=== PATIENT | female | born 1950 | race African-American/Black ===

== ENCOUNTER 2018-01-30 09:02 | Inpatient (IN) ==
[2018-01-30] MEDS ORDERED: ASPIRIN 325 MG TABLET PO STA (09:19)
[2018-01-30] MEDS ORDERED: ORPHENADRINE 60 MG/2 ML VIAL IV STA (09:19)
[2018-01-30] MEDS ORDERED: ONDANSETRON 4 MG/2 ML VIAL IV STA (09:19)
[2018-01-30] MEDS ORDERED: KETOROLAC 30 MG/1 ML VIAL IV STA (09:19)
[2018-01-30 10:12] LABS: Basophils % 0.1 % (0.0-0.8); Eosinophils % 0.1 % (0.00-10.9); Hematocrit 31.9 VOL% (35.7-47.0); Hemoglobin 10.3 GM/DL (12.0-16.0); Immature Granulocytes % 0.6 %; Lymphocytes % 12.6 % (21.3-54.2); Mean Corpuscular HGB Conc 32.3 GM/DL (32-36); Mean Corpuscular Hemoglobin 24 PG (27-34); Mean Corpuscular Volume 74.2 FL (87-102); Mean Platelet Volume 10.5 FL (9.6-12.0); Monocytes % 6.1 % (1.7-12.7); Neutrophils # 12.8 10*3/uL (1.4-7.4); Neutrophils % 80.5 % (38.7-73.9); Platelet Count 286 T/CUMM (130-400); Red Cell Distribution Width 16.7 % (9.3-17.3); White Blood Count 15.9 T/CUMM (4-12)
[2018-01-30] MEDS ORDERED: LEVOFLOXACIN INJ 750 MG in PREMIX 1 EACH IV STA (10:15)
[2018-01-30 10:27] LABS: Barbiturates Screen,Urine Negative (Negative); Benzodiazepines Screen,Urine Negative (Negative); Cannabinoid Screen,Urine Negative (Negative); Opiate Screen,Urine Negative (Negative); Phencyclidine Screen,Urine Negative (Negative)
[2018-01-30 10:31] LABS: Alanine Aminotransferase 35 U/L (13-56); Albumin 2.2 G/DL (3.4-5.0); Alkaline Phosphatase 140 U/L (45-117); Aspartate Amino Transferase 39 U/L (0-37); Blood Urea Nitrogen 14 MG/DL (7-18); Calcium 9.1 MG/DL (8.5-10.1); Glucose 115 MG/DL (74-106); Potassium 4.8 MMOL/L (3.5-5.1); Sodium 136 MMOL/L (136-145); Total Protein 8.4 G/DL (6.4-8.3); Troponin I Only < 0.015 NG/ML (0.00-0.045)
[2018-01-30 10:58] LABS: INR 1.2; PT Patient Result 12.1 SECS
[2018-01-30 12:48] LABS: Apearance,Urine CLEAR (Clear); Bilirubin,Urine Negative (Negative); Blood, Urine Negative (Negative); Glucose,Urine (UA) Negative (Negative); Ketones,Urine Negative (Negative); Nitrite,Urine Negative (Negative); Protein,Urine 30 MG/DL; RBC,Urine <1 /HPF (0-4); Squamous Epithelial Cell,Urine Occasional /HPF (0-10); Urine Color Yellow (Yellow); Urine Specific Gravity 1.012 (1.001-1.035); Urine Urobilinogen < 2.0 EU/DL (0.2-1.0); WBC,Urine <1 /HPF (0-6)
[2018-01-30] MEDS: LEVOFLOXACIN INJ 750 MG in PREMIX 1 EACH IV SCH (13:20)
[2018-01-30] MEDS ORDERED: MONTELUKAST 10 MG TABLET PO PRN (13:44)
[2018-01-30] MEDS: ALBUTEROL/IPRATROPIUM 3 ML NEB RESP TX SCH ×2 (15:54→19:16)
[2018-01-30] MEDS: metFORMIN 500 MG TABLET PO SCH (17:45)
[2018-01-30] MEDS: CARVEDILOL 25 MG TABLET PO SCH (17:45)
[2018-01-30] MEDS: ONDANSETRON 4 MG/2 ML VIAL IV PRN ×2 (17:46→22:13)
[2018-01-30] MEDS: POTASSIUM CHLORIDE 20 MEQ TABLET PO SCH (20:32)
[2018-01-30] MEDS: GABAPENTIN 300 MG CAPSULE PO SCH (20:32)
[2018-01-30] MEDS: CLOPIDOGREL 75 MG TABLET PO SCH (20:32)
[2018-01-31] MEDS: ALBUTEROL/IPRATROPIUM 3 ML NEB RESP TX SCH ×4 (01:11→19:10)
[2018-01-31 04:09] LABS: Basophils % 0.1 % (0.0-0.8); Eosinophils % 0.2 % (0.00-10.9); Hematocrit 26.9 VOL% (35.7-47.0); Hemoglobin 8.5 GM/DL (12.0-16.0); Immature Granulocytes % 0.5 %; Immature Granulocytes Absolute 0.07 #; Lymphocytes # 1.7 10*3/uL (1.4-4.0); Lymphocytes % 13.1 % (21.3-54.2); Mean Corpuscular HGB Conc 31.6 GM/DL (32-36); Mean Corpuscular Hemoglobin 24 PG (27-34); Mean Corpuscular Volume 75.4 FL (87-102); Mean Platelet Volume 10.5 FL (9.6-12.0); Monocytes # 1.2 10*3/uL (0.11-0.8); Neutrophils # 10.1 10*3/uL (1.4-7.4); Neutrophils % 77.1 % (38.7-73.9); Platelet Count 230 T/CUMM (130-400); Red Blood Count 3.57 MC/CUMM (3.8-5.5); Red Cell Distribution Width 16.5 % (9.3-17.3); White Blood Count 13.1 T/CUMM (4-12)
[2018-01-31 04:53] LABS: Calcium 8.3 MG/DL (8.5-10.1); Osmolality,Calculated 270.4 MOS/KG (273-304)
[2018-01-31] MEDS: MULTIVITAMIN (CENTRUM) TABLET PO SCH (09:58)
[2018-01-31] MEDS: CHOLECALCIFEROL 1,000 UNIT TABLET PO SCH (09:58)
[2018-01-31] MEDS: oxyCODONE/ACETAMINOPHEN 5-325 MG TABLET PO SCH ×4 (09:59→20:14)
[2018-01-31] MEDS: clonazePAM 0.5 MG TABLET PO SCH ×2 (09:59→20:14)
[2018-01-31] MEDS: CARVEDILOL 25 MG TABLET PO SCH ×2 (10:00→16:51)
[2018-01-31] MEDS: metFORMIN 500 MG TABLET PO SCH ×2 (10:00→16:51)
[2018-01-31] MEDS: PANTOPRAZOLE 40 MG TABLET PO SCH (10:00)
[2018-01-31] MEDS: ASPIRIN EC 325 MG TABLET PO SCH (10:00)
[2018-01-31] MEDS: POTASSIUM CHLORIDE 20 MEQ TABLET PO SCH ×2 (10:00→20:14)
[2018-01-31] MEDS: SERTRALINE 25 MG TABLET PO SCH (10:04)
[2018-01-31] MEDS: SIMVASTATIN 20 MG TABLET PO SCH (10:07)
[2018-01-31] MEDS: LEVOFLOXACIN INJ 750 MG in PREMIX 1 EACH IV SCH (10:09)
[2018-01-31] MEDS: FOSINOPRIL 10 MG TABLET PO SCH (11:21)
[2018-01-31] MEDS: PROMETHAZINE 25 MG TABLET PO PRN (14:04)
[2018-01-31] MEDS: ONDANSETRON 4 MG/2 ML VIAL IV PRN (17:56)
[2018-01-31 19:37] LABS: Hematocrit 25.5 VOL% (35.7-47.0)
[2018-01-31] MEDS: CLOPIDOGREL 75 MG TABLET PO SCH (20:14)
[2018-01-31] MEDS: GABAPENTIN 300 MG CAPSULE PO SCH (20:14)
[2018-02-01] MEDS: oxyCODONE/ACETAMINOPHEN 5-325 MG TABLET PO SCH ×6 (00:06→20:28)
[2018-02-01] MEDS: ALBUTEROL/IPRATROPIUM 3 ML NEB RESP TX SCH ×4 (00:10→19:34)
[2018-02-01] MEDS: metFORMIN 500 MG TABLET PO SCH ×2 (09:51→17:21)
[2018-02-01] MEDS: ASPIRIN EC 325 MG TABLET PO SCH (09:51)
[2018-02-01] MEDS: PANTOPRAZOLE 40 MG TABLET PO SCH (09:52)
[2018-02-01] MEDS: MULTIVITAMIN (CENTRUM) TABLET PO SCH (09:52)
[2018-02-01] MEDS: SIMVASTATIN 20 MG TABLET PO SCH (09:52)
[2018-02-01] MEDS: SERTRALINE 25 MG TABLET PO SCH (09:52)
[2018-02-01] MEDS: CHOLECALCIFEROL 1,000 UNIT TABLET PO SCH (09:52)
[2018-02-01] MEDS: CARVEDILOL 25 MG TABLET PO SCH ×2 (09:52→17:21)
[2018-02-01] MEDS: clonazePAM 0.5 MG TABLET PO SCH ×2 (09:52→20:28)
[2018-02-01] MEDS: POTASSIUM CHLORIDE 20 MEQ TABLET PO SCH ×2 (09:53→20:28)
[2018-02-01] MEDS: FOSINOPRIL 10 MG TABLET PO SCH (09:53)
[2018-02-01] MEDS: LEVOFLOXACIN INJ 750 MG in PREMIX 1 EACH IV SCH (09:53)
[2018-02-01] MEDS: PROMETHAZINE 25 MG TABLET PO PRN (15:01)
[2018-02-01] MEDS: CLOPIDOGREL 75 MG TABLET PO SCH (20:28)
[2018-02-01] MEDS: GABAPENTIN 300 MG CAPSULE PO SCH (20:28)
[2018-02-01] MEDS: ONDANSETRON 4 MG/2 ML VIAL IV PRN (20:29)
[2018-02-02] MEDS: ALBUTEROL/IPRATROPIUM 3 ML NEB RESP TX SCH ×4 (01:05→19:09)
[2018-02-02] MEDS: oxyCODONE/ACETAMINOPHEN 5-325 MG TABLET PO SCH ×5 (01:21→17:32)
[2018-02-02 06:43] LABS: Basophils % 0.1 % (0.0-0.8); Eosinophils % 0.3 % (0.00-10.9); Hematocrit 23.5 VOL% (35.7-47.0); Hemoglobin 7.5 GM/DL (12.0-16.0); Immature Granulocytes % 0.5 %; Immature Granulocytes Absolute 0.06 #; Lymphocytes # 1.3 10*3/uL (1.4-4.0); Lymphocytes % 11.4 % (21.3-54.2); Mean Corpuscular HGB Conc 31.9 GM/DL (32-36); Mean Corpuscular Hemoglobin 24 PG (27-34); Mean Corpuscular Volume 74.4 FL (87-102); Mean Platelet Volume 10.9 FL (9.6-12.0); Monocytes % 8.5 % (1.7-12.7); Neutrophils # 9.2 10*3/uL (1.4-7.4); Neutrophils % 79.2 % (38.7-73.9); Platelet Count 182 T/CUMM (130-400); Red Blood Count 3.16 MC/CUMM (3.8-5.5); Red Cell Distribution Width 16.3 % (9.3-17.3); White Blood Count 11.6 T/CUMM (4-12)
[2018-02-02] MEDS ORDERED: SERTRALINE 50 MG TABLET PO SCH (08:59)
[2018-02-02] MEDS: metFORMIN 500 MG TABLET PO SCH ×2 (10:36→17:31)
[2018-02-02] MEDS: MULTIVITAMIN (CENTRUM) TABLET PO SCH (10:38)
[2018-02-02] MEDS: CHOLECALCIFEROL 1,000 UNIT TABLET PO SCH (10:39)
[2018-02-02] MEDS: CARVEDILOL 25 MG TABLET PO SCH ×2 (10:39→17:32)
[2018-02-02] MEDS: SIMVASTATIN 20 MG TABLET PO SCH (10:40)
[2018-02-02] MEDS: ASPIRIN EC 325 MG TABLET PO SCH (10:41)
[2018-02-02] MEDS: POTASSIUM CHLORIDE 20 MEQ TABLET PO SCH (10:41)
[2018-02-02] MEDS: clonazePAM 0.5 MG TABLET PO SCH (10:41)
[2018-02-02] MEDS: PANTOPRAZOLE 40 MG TABLET PO SCH (10:42)
[2018-02-02] MEDS: ONDANSETRON 4 MG/2 ML VIAL IV PRN ×2 (10:47→15:19)
[2018-02-02] MEDS: FOSINOPRIL 10 MG TABLET PO SCH (10:50)
[2018-02-02] MEDS: LEVOFLOXACIN INJ 750 MG in PREMIX 1 EACH IV SCH (10:53)
[2018-02-02] MEDS: PROMETHAZINE 25 MG TABLET PO PRN (12:27)
[2018-02-02] MEDS ORDERED: NYSTATIN 500,000 UNIT/5 ML UDCUP SWISH/SWAL SCH (14:00)
[2018-02-02 23:15] VITALS: BP 113/57
== END 2018-02-02 20:05 | disposition home or self-care (01) | DRG 194 ==
LOC: N.ED 09:02 → N.EDINP 12:02 → N.5E 13:18
PROVIDERS: ADMIT Family Medicine; ATTEND Family Medicine

== ENCOUNTER 2018-02-05 20:05 | Inpatient (IN) ==
[2018-02-05] MEDS ORDERED: FUROSEMIDE 100 MG/10 ML VIAL IV STA (20:30)
[2018-02-05] MEDS ORDERED: methylPREDNISolone SOD SUC 125 MG/2 ML VIAL IV STA (20:30)
[2018-02-05] MEDS ORDERED: MORPHINE 4 MG/1 ML VIAL IV STA (20:30)
[2018-02-05] MEDS ORDERED: ONDANSETRON 4 MG/2 ML VIAL IV STA (20:30)
[2018-02-05] MEDS ORDERED: CLINDAMYCIN INJ 600 MG in PREMIX 1 EACH IV STA (20:30)
[2018-02-05] MEDS ORDERED: ALBUTEROL 2.5 MG/3 ML NEB RESP TX SCH (20:30)
[2018-02-05 20:44] LABS: Basophils % 0.1 % (0.0-0.8); Eosinophils % 0.1 % (0.00-10.9); Hematocrit 23.2 VOL% (35.7-47.0); Hemoglobin 7.6 GM/DL (12.0-16.0); Immature Granulocytes % 0.5 %; Immature Granulocytes Absolute 0.08 #; Lymphocytes # 1.4 10*3/uL (1.4-4.0); Lymphocytes % 8.8 % (21.3-54.2); Mean Corpuscular HGB Conc 32.8 GM/DL (32-36); Mean Corpuscular Hemoglobin 24 PG (27-34); Mean Corpuscular Volume 71.8 FL (87-102); Mean Platelet Volume 9.9 FL (9.6-12.0); Monocytes # 1.1 10*3/uL (0.11-0.8); Neutrophils # 12.9 10*3/uL (1.4-7.4); Neutrophils % 83.5 % (38.7-73.9); Platelet Count 292 T/CUMM (130-400); Red Blood Count 3.23 MC/CUMM (3.8-5.5); Red Cell Distribution Width 16.8 % (9.3-17.3); White Blood Count 15.5 T/CUMM (4-12)
[2018-02-05 21:04] LABS: INR 1.1
[2018-02-05 21:11] LABS: Alanine Aminotransferase 62 U/L (13-56); Albumin 1.9 G/DL (3.4-5.0); Alkaline Phosphatase 188 U/L (45-117); Aspartate Amino Transferase 48 U/L (0-37); Bilirubin,Total < 0.39 MG/DL (0.2-1.0); Blood Urea Nitrogen 17 MG/DL (7-18); Calcium 8.2 MG/DL (8.5-10.1); Glucose 187 MG/DL (74-106); Osmolality,Calculated 276.1 MOS/KG (273-304); Potassium 4.8 MMOL/L (3.5-5.1); Sodium 135 MMOL/L (136-145); Total Protein 7.1 G/DL (6.4-8.3); Troponin I Only < 0.015 NG/ML (0.00-0.045)
[2018-02-05] MEDS ORDERED: MAGNESIUM SULF RIDER 2 GM in PREMIX 1 EACH IV STA (21:16)
[2018-02-05 22:24] LABS: Apearance,Urine CLEAR (Clear); Bacteria,Urine Occasional /HPF (Few); Bilirubin,Urine Negative (Negative); Blood, Urine Negative (Negative); Glucose,Urine (UA) Negative (Negative); Ketones,Urine Negative (Negative); Mucus,Urine Occasional /LPF (Occasional); Nitrite,Urine Negative (Negative); Protein,Urine Negative; RBC,Urine 1 /HPF (0-4); Squamous Epithelial Cell,Urine Occasional /HPF (0-10); Urine Color Yellow (Yellow); Urine Specific Gravity 1.006 (1.001-1.035); Urine Urobilinogen < 2.0 EU/DL (0.2-1.0); WBC,Urine 2 /HPF (0-6)
[2018-02-05] MEDS ORDERED: ALBUTEROL/IPRATROPIUM 3 ML NEB RESP TX PRN (23:29)
[2018-02-05] MEDS ORDERED: ACETAMINOPHEN 325 MG TABLET PO PRN (23:29)
[2018-02-05] MEDS ORDERED: GLUCAGON 1 MG VIAL IM PRN (23:29)
[2018-02-05] MEDS ORDERED: ONDANSETRON 4 MG/2 ML VIAL IV PRN (23:29)
[2018-02-05] MEDS ORDERED: DEXTROSE 50% 25 GM/50 ML VIAL IV PRN (23:29)
[2018-02-06] MEDS: SODIUM CHLORIDE 0.9% 1,000 ML IV SCH ×2 (00:04→17:21)
[2018-02-06 06:13] LABS: Basophils % 0.1 % (0.0-0.8); Hematocrit 22.8 VOL% (35.7-47.0); Hemoglobin 7.4 GM/DL (12.0-16.0); Immature Granulocytes % 0.6 %; Immature Granulocytes Absolute 0.09 #; Lymphocytes # 0.6 10*3/uL (1.4-4.0); Lymphocytes % 4.2 % (21.3-54.2); Mean Corpuscular HGB Conc 32.5 GM/DL (32-36); Mean Corpuscular Hemoglobin 23 PG (27-34); Mean Corpuscular Volume 71.7 FL (87-102); Mean Platelet Volume 10.4 FL (9.6-12.0); Monocytes # 0.1 10*3/uL (0.11-0.8); Monocytes % 0.6 % (1.7-12.7); Neutrophils # 13.8 10*3/uL (1.4-7.4); Neutrophils % 94.5 % (38.7-73.9); Platelet Count 306 T/CUMM (130-400); Red Blood Count 3.18 MC/CUMM (3.8-5.5); White Blood Count 14.7 T/CUMM (4-12)
[2018-02-06 06:44] LABS: Hypochromasia 1+; Lymphocytes 5 % (20-55); Platelet Estimate Adequate; Segmented Neutrophils 94 % (50-85); Total Cells Counted 100
[2018-02-06 06:47] LABS: Albumin 1.8 G/DL (3.4-5.0); Bilirubin,Total 0.4 MG/DL (0.2-1.0); Calcium 8.4 MG/DL (8.5-10.1); Osmolality,Calculated 281.2 MOS/KG (273-304); Potassium 5.2 MMOL/L (3.5-5.1); Risk Ratio 2.67; Total Protein 7.1 G/DL (6.4-8.3); VLDL CHOLESTEROL 16.6 MG/DL
[2018-02-06] MEDS ORDERED: SODIUM CHLORIDE 0.9% 1,000 ML IV PRN (08:47)
[2018-02-06] MEDS: MORPHINE 4 MG/1 ML VIAL IV PRN ×2 (09:43→14:42)
[2018-02-06] MEDS: INSULIN REGULAR 100 UNIT/ML SUBCUT SCH ×4 (11:22→20:35)
[2018-02-06] MEDS: MAGNESIUM SULF RIDER 1 GM in PREMIX 1 EACH IV SCH (11:24)
[2018-02-06] MEDS: DOCUSATE SODIUM 100 MG CAPSULE PO SCH ×2 (11:25→20:35)
[2018-02-06] MEDS: PANTOPRAZOLE 40 MG TABLET PO SCH (11:25)
[2018-02-06] MEDS ORDERED: MONTELUKAST 10 MG TABLET PO PRN (16:02)
[2018-02-06] MEDS ORDERED: PROMETHAZINE 25 MG TABLET PO PRN (16:02)
[2018-02-06 16:39] LABS: Calcium 8.9 MG/DL (8.5-10.1); Osmolality,Calculated 278.2 MOS/KG (273-304); Potassium 4.7 MMOL/L (3.5-5.1)
[2018-02-06] MEDS ORDERED: SIMVASTATIN 20 MG TABLET PO SCH (17:00)
[2018-02-06] MEDS: metFORMIN 500 MG TABLET PO SCH (17:10)
[2018-02-06] MEDS: oxyCODONE/ACETAMINOPHEN 5-325 MG TABLET PO SCH ×2 (17:11→20:35)
[2018-02-06] MEDS ORDERED: GABAPENTIN 300 MG CAPSULE PO SCH (19:00)
[2018-02-06] MEDS ORDERED: CLOPIDOGREL 75 MG TABLET PO SCH (19:00)
[2018-02-06] MEDS: CARVEDILOL 25 MG TABLET PO SCH (20:35)
[2018-02-06] MEDS: MAGNESIUM OXIDE 400 MG TABLET PO SCH (20:40)
[2018-02-06] MEDS ORDERED: clonazePAM 0.5 MG TABLET PO PRN (22:51)
[2018-02-07] MEDS: oxyCODONE/ACETAMINOPHEN 5-325 MG TABLET PO SCH ×4 (00:12→13:53)
[2018-02-07 06:00] LABS: Hematocrit 29.2 VOL% (35.7-47.0)
[2018-02-07] MEDS: INSULIN REGULAR 100 UNIT/ML SUBCUT SCH ×2 (08:06→12:12)
[2018-02-07] MEDS: metFORMIN 500 MG TABLET PO SCH (08:08)
[2018-02-07] MEDS: PANTOPRAZOLE 40 MG TABLET PO SCH (08:10)
[2018-02-07] MEDS: CARVEDILOL 25 MG TABLET PO SCH (08:10)
[2018-02-07] MEDS: MAGNESIUM OXIDE 400 MG TABLET PO SCH (08:10)
[2018-02-07] MEDS: DOCUSATE SODIUM 100 MG CAPSULE PO SCH (08:16)
[2018-02-07] MEDS ORDERED: SERTRALINE 50 MG TABLET PO SCH (09:00)
[2018-02-07] MEDS ORDERED: CHOLECALCIFEROL 1,000 UNIT TABLET PO SCH (09:00)
[2018-02-07] MEDS ORDERED: ASPIRIN EC 325 MG TABLET PO SCH (09:00)
[2018-02-07] MEDS ORDERED: MULTIVITAMIN (CENTRUM) TABLET PO SCH (09:00)
[2018-02-07] MEDS: MAGNESIUM SULF RIDER 1 GM in PREMIX 1 EACH IV SCH (09:29)
[2018-02-07 12:05] VITALS: BP 120/61
== END 2018-02-07 16:22 | disposition home or self-care (01) | DRG 437 ==
LOC: N.ED 20:05 → N.EDINP 20:05 → N.4E 23:37
PROVIDERS: ADMIT Family Medicine; ATTEND Family Medicine